=== PATIENT | male | born 1940 | race Caucasian/White ===

== ENCOUNTER 2019-12-24 18:52 | Observation (INO) | payer MEDICARE, BC, OTHER ==
[2019-12-24] MEDS ORDERED: DOPamine 400 MG/D5W 250 ML 250 ML ONE (19:26)
[2019-12-24 19:42] LABS: #Eosinphils 0.1 thou/uL (0.0-0.7); #Lymphocytes 1.7 thou/uL (1.20-3.40); #Monocytes 0.8 thou/uL (0.11-0.59); #Neutrophils 5.5 thou/uL (1.40-6.50); %Basophils 0.5 % (0.0-1.0); %Eosinophils 0.9 % (0.0-10.0); %Lymphocytes 21.1 % (21.0-51.0); %Monocytes 9.6 % (0.0-10.0); %Neutrophils 67.9 % (42.0-75.0); Hemoglobin 14.8 g/dL (14.0-18.0); Mean Corpuscular HGB CONC 34.6 g/dL (32.0-36.0); Mean Corpuscular Volume 95.4 fL (78.0-98.0); Mean Platelet Volume 8.3 fL (7.4-10.4); Platelet Count 200 thou/uL (130-400); RBC Distribution Width 13.5 % (11.5-14.5); White Blood Cell (WBC) Count 8.1 thou/uL (4.8-10.8)
[2019-12-24 19:43] LABS: Albumin 4.1 g/dL (3.4-4.8)
[2019-12-24 19:44] LABS: Calcium 9.1 mg/dL (7.8-10.44); Chloride 103 mmol/L (98-107); Potassium 4.5 mmol/L (3.5-5.1); Sodium 136 mmol/L (136-145)
[2019-12-24 19:45] LABS: Glucose 103 mg/dL (83-110)
[2019-12-24 19:46] LABS: Globulin 2.6 g/dL (2.4-3.5); Protein, Total 6.7 g/dL (5.8-8.1)
[2019-12-24 19:47] LABS: Anion Gap 15 mmol/L (10-20); Bilirubin, Total 0.9 mg/dL (0.2-1.2); Carbon Dioxide 23 mmol/L (23-31)
[2019-12-24 19:48] LABS: Alkaline Phosphatase 47 U/L (40-110)
[2019-12-24 19:49] LABS: BUN (Urea Nitrogen) 27 mg/dL (8.4-25.7); Calc. Creatinine Clearance 0 mL/min (70-130); Estimated GFR-MDRD 36
[2019-12-24 19:50] LABS: AST (SGOT) 20 U/L (5-34)
[2019-12-24 19:51] LABS: ALT (SGPT) 25 U/L (8-55); Magnesium 1.4 mg/dL (1.6-2.6)
[2019-12-24] MEDS ORDERED: Atropine Sulfate 1 mg/10 ml Syringe ONE ×5 (19:58→23:24)
--- NOTE | 2019-12-24 20:07 | RAD ---
Portable frontal chest radiograph: 12/24/2019 COMPARISON: 12/16/2014 HISTORY: Chest pain FINDINGS: A radiopaque device overlies the midline upper mediastinum. Midline sternotomy wires are pr esent. No pneumothorax or pleural fluid. No focal consolidation or alveolar edema. IMPRESSION: No acute findings.
[2019-12-24] MEDS ORDERED: Magnesium 2 GM/50 ML BAG (IN WATER) ONE (20:26)
[2019-12-24] MEDS ORDERED: Ondansetron PF 4 MG/2 ML Vial ONE (21:30)
[2019-12-24] MEDS ORDERED: Ondansetron PF 4 MG/2 ML Vial IVP PRN (21:37)
[2019-12-24] MEDS ORDERED: Dextrose 5% in Water 1,000 ML IV PRN (21:48)
[2019-12-24] MEDS ORDERED: HumaLOG 300 UNITS/3 ML VIAL SC PRN (21:48)
[2019-12-24] MEDS ORDERED: Dextrose 50% Abboject 50 ML SYRINGE SLOW IVP PRN (21:48)
[2019-12-24] MEDS ORDERED: Magnesium Sulfate 1 GM/2 ML VIAL IM SCH (22:00)
[2019-12-24] MEDS ORDERED: Mag-Al 1200 mg/1200 mg/30 ML UDCUP ONE (22:12)
[2019-12-24] MEDS ORDERED: Sodium Chloride 0.9% (PF) 10 ML VIAL FS PRN (22:12)
--- NOTE | 2019-12-24 22:37 | CON ---
DATE OF CONSULTATION: HISTORY OF PRESENT ILLNESS: The patient is a 79-year-old gentleman with a history of coronary artery disease, who presents after feeling weak and nearly loosing consciousness. The patient states he has previously undergone coronary bypass surgery 2002. He also reports that he has previously underwent a repeat catheterization in 2014. He was found to have normal left ventricular systolic function. The left internal mammary artery was an atretic vessel. The saphenous vein graft to the ramus, OM, and right coronary artery were patent. The patient has continued on medical therapy. He was in his usual state of health until a few days ago. He felt very weak and lightheaded. He nearly lost consciousness. The patient went to the office today and had a monitor placed and was noted to have a long pause. The patient states he felt weak today, but did not lose consciousness. PAST MEDICAL HISTORY: 1. Coronary artery disease. 2. Hypertension. 3. Dyslipidemia. 4. Chronic renal insufficiency. PAST SURGICAL HISTORY: Coronary artery bypass surgery. ALLERGIES: DEMEROL. MEDICATIONS: 1. Metformin 1000 b.i.d. 2. Lipitor 10 at bedtime. 3. Plavix 75 daily. 4. Losartan 50 daily. 5. Metoprolol 25 b.i.d. 6. Protonix 40 daily. 7. Amlodipine 10 daily. PHYSICAL EXAMINATION: GENERAL: This is a well-developed gentleman, in no acute distress. VITAL SIGNS: Blood pressure 140/70. NECK: No jugular venous distention. LUNGS: Clear to auscultation. HEART: Regular rate and rhythm. Normal S1 and S2. No murmurs. ABDOMEN: Nondistended. EXTREMITIES: Show no edema. VASCULAR: Radial pulses are 2+. LABORATORY DATA: White blood cell count 8.1, hemoglobin 14.8, hematocrit 42.9, and platelets are 209. Sodium was 136, potassium 4.5, chloride 103, bicarb 27, and creatinine was 1.8. EKG revealed normal sinus rhythm, nonspecific T-wave abnormality. Telemetry monitoring with a nonspecific T-wave abnormality. IMPRESSION: 1. Third-degree heart block. 2. Coronary artery disease. 3. History of coronary artery bypass surgery. 4. Hypertension. 5. Dyslipidemia. This gentleman presents with near-syncope. He is found to have marked bradycardia on his event monitor. The patient has been started on dopamine. He will be transferred to the ICU. Beta-luisa therapy will be withheld. He most likely will need placement of electronic pacemaker. TIME SPENT: Critical care time is 60 minutes. Job ID: [id number] MTDD
--- NOTE | 2019-12-24 22:51 | HP ---
REASON FOR ADMISSION: Twelve-second pause on the heart monitor. HISTORY OF PRESENT ILLNESS: This is a 79-year-old male patient who previously has been having episodes of near syncope, where he feels that he is going to faint, but does not lose consciousness. He is able to get down on the ground and stabilize himself without fainting or falling. Patient denies chest pain. No shortness of breath during his episodes. In today's episode of 12-second pause, he was asymptomatic although he felt warm, but he never felt dizzy. He continued on his day as usual and he did do some work in the yard as well. PAST MEDICAL HISTORY: 1. Coronary artery disease status post CABG in 2002. 2. Chronic kidney disease, stage 3. 3. Diabetes type 2. 4. High blood pressure. 5. High cholesterol. ALLERGIES: TO DEMEROL. SOCIAL HISTORY: He does not smoke. Drinks alcohol socially. FAMILY HISTORY: Negative for premature coronary artery disease. REVIEW OF SYSTEMS: All systems reviewed, except for the above mentioned found to be negative. PHYSICAL EXAMINATION: GENERAL: He is awake, alert, oriented. Does not appear in distress. VITAL SIGNS: His blood pressure is 117/71, heart rate of 49, temperature is 99 degrees. HEENT: Head is nontraumatic, normocephalic. Pupils are equal and reactive. Extraocular movements are intact. Nonicteric sclerae. Well injected conjunctivae. Oral mucosa normal. Nasal mucosa normal. NECK: Supple. No adenopathy. No murmur. Thyroid in not palpable. Trachea is midline. No supraclavicular adenopathy. HEART: S1, S2 regular. Faint systolic murmur is heard. No displacement of PMI. LUNGS: Clear to auscultation bilaterally. No wheezes, rhonchi, or crackles. Bowel sounds are positive. ABDOMEN: Nontender abdomen. No hepatosplenomegaly. EXTREMITIES: No lower extremity edema. No cyanosis. NEUROLOGIC: Cranial nerves 2 through 12 within normal limits. Normal motor function. Normal sensory function. Normal reflexes. LABORATORY DATA: Blood work shows a WBC of 8.1, hemoglobin 14.8, platelets of 200. Sodium 136, potassium 4.5, BUN 27. Creatinine 1.81, previous creatinine 1.64. Magnesium 1.4. Chest x-rays shows no acute findings. EKG per my read shows sinus bradycardia. No ST-segment or T-wave changes. ASSESSMENT AND PLAN: This is a 79-year-old male patient who has been having episodes of near syncope. Today, Cardiology put him on a Holter monitor and he did have an episode where he had a pause for 12 seconds. He was brought into the hospital for further management and ultimately an emergent pacemaker placement. Cardiac: The patient will be admitted to the intensive care unit. He is currently on a dopamine drip to keep his heart rate above 60 and we will continue cycling his cardiac enzymes. Cardiology already saw him. We will keep him n.p.o. after midnight for pacemaker in the morning. Endocrinology: He is diabetic. He will be on insulin sliding scale. Renal system, electrolytes: The patient has chronic kidney disease. He is around his baseline. We will repeat his labs in the morning. We will correct his magnesium. For DVT prophylaxis, he will be on SCDs. Awaiting his med rec to be done so I could reconcile his medication. He is a full code. Job ID: [id number]
[2019-12-24] MEDS ORDERED: Pantoprazole 40 MG VIAL IVP SCH (23:00)
[2019-12-24 23:27] LABS: Troponin I Less than 0.010 ng/mL (< 0.028)
[2019-12-24 23:39] VITALS: BMI 30.2
[2019-12-25] MEDS ORDERED: DOPamine 400 MG/D5W 250 ML 250 ML IVPB SCH (02:00)
[2019-12-25 02:26] LABS: Troponin I 0.033 ng/mL (< 0.028)
[2019-12-25] MEDS ORDERED: Pantoprazole 40 MG VIAL IVP SCH ×2 (09:00)
[2019-12-25] MEDS ORDERED: Heparin 5,000 UNITS/ML VIAL SC SCH (09:00)
[2019-12-25] MEDS ORDERED: Iopamidol 370 76% 50 ML VIAL FS ONE (10:05)
[2019-12-25 10:10] LABS: #Eosinphils 0.1 thou/uL (0.0-0.7); #Lymphocytes 1.2 thou/uL (1.20-3.40); #Monocytes 1.4 thou/uL (0.11-0.59); #Neutrophils 8.4 thou/uL (1.40-6.50); %Basophils 0.2 % (0.0-1.0); %Eosinophils 0.7 % (0.0-10.0); %Lymphocytes 10.4 % (21.0-51.0); %Monocytes 12.8 % (0.0-10.0); %Neutrophils 75.9 % (42.0-75.0); Hemoglobin 13.6 g/dL (14.0-18.0); Mean Corpuscular HGB CONC 34.4 g/dL (32.0-36.0); Mean Corpuscular Hemoglobin 32.6 pg (27.0-31.0); Mean Corpuscular Volume 94.8 fL (78.0-98.0); Mean Platelet Volume 8.1 fL (7.4-10.4); Platelet Count 221 thou/uL (130-400); RBC Distribution Width 13.4 % (11.5-14.5); Red Blood Cell (RBC) Count 4.19 mill/uL (4.70-6.10); White Blood Cell (WBC) Count 11.1 thou/uL (4.8-10.8)
[2019-12-25 10:28] LABS: Anion Gap 15 mmol/L (10-20); BUN (Urea Nitrogen) 26 mg/dL (8.4-25.7); Calc. Creatinine Clearance 47 mL/min (70-130); Calcium 9.1 mg/dL (7.8-10.44); Carbon Dioxide 23 mmol/L (23-31); Chloride 103 mmol/L (98-107); Estimated GFR-MDRD 40; Glucose 180 mg/dL (83-110); Potassium 4.4 mmol/L (3.5-5.1); Sodium 137 mmol/L (136-145)
--- NOTE | 2019-12-25 11:17 | EKG ---
Test Reason : STAT Blood Pressure : / mmHG Vent. Rate : 052 BPM Atrial Rate : 052 BPM P-R Int : 152 ms QRS Dur : 082 ms QT Int : 454 ms P-R-T Axes : 031 031 029 degrees QTc Int : 422 ms Sinus bradycardia Otherwise normal ECG No previous ECGs available Confirmed by JESSY LOYD M.D. ([id number]) on 12/25/2019 11:16:54 AM Referred By: Confirmed By:JESSY LOYD M.D.
[2019-12-25] MEDS ORDERED: CEFAZOLIN 1 GM VIAL ONE (11:37)
[2019-12-25] MEDS ORDERED: Gentamicin 80 MG/2 ML VIAL ONE (11:37)
[2019-12-25] MEDS ORDERED: Lidocaine 1% (PF) 30 ML VIAL ONE (11:50)
[2019-12-25] MEDS ORDERED: Midazolam HCl 2 mg/2 ml Vial ONE (12:26)
[2019-12-25 12:37] LABS: SARS-CoV-2 MS2 Positive; SARS-CoV-2 N Gene Negative; SARS-CoV-2 S Gene Negative; SARS-CoV-2 by NAA Not Detected (NotDetected); SARS-CoV-2 orf1ab Negative
--- NOTE | 2019-12-25 12:37 | CON ---
DATE OF CONSULTATION: HISTORY OF PRESENT ILLNESS: Samm Goff is a 79-year-old gentleman, who came to the hospital after dizziness. He has had a previous CABG in 2002. He was found to have events, monitoring by a local sprinkler irrigation equipment mechanic. He now is admitted to the hospital in the ICU for possible pacemaker insertion. He is a nonsmoker. Denies any shortness of breath, chest pain, chills, or sweats. PAST MEDICAL HISTORY: Pertinent for sleep apnea, has been for 5 years; hypertension; hyperlipidemia; renal disease. PAST SURGICAL HISTORY: Stent in 2010, bypass surgery in 2002. SOCIAL HISTORY: Alcohol, none. Tobacco, none. HOME MEDICATIONS: Include: 1. Metformin 1000 twice a day. 2. CQ 200. 3. Ranitidine 150. 4. Protonix 40. 5. Metoprolol 25. 6. Magnesium. 7. Cozaar 50. 8. Claritin. 9. Plavix 75. ALLERGIES: DEMEROL. SOCIAL AND FAMILY HISTORY: Unremarkable. REVIEW OF SYSTEMS: 10-point negative. PHYSICAL EXAMINATION: GENERAL: He is in no distress. VITAL SIGNS: Pulse 51, blood pressure 116/46, respiratory rate 18, sats 99%. CHEST: No wheezing. No crackles. CARDIAC: Normal S1, S2. No gallop. ABDOMEN: No masses. LABORATORY AND DIAGNOSTIC DATA: X-ray is clear. Creatinine 1.8. ASSESSMENT: Symptomatic bradycardia, coronary artery disease, hypertension, and sleep apnea. PLAN: Await input from Cardiology. Pulmonary/Critical Care will follow while in the ICU. He can clearly continue CPAP. He has a mild case of sleep apnea, on 10 cm nasal CPAP. Consultation note, 70 minutes, 50% direct patient care. Job ID: [id number]
[2019-12-25] MEDS ORDERED: Acetaminophen/Codeine 30-300mg Tablet PO PRN (13:41)
[2019-12-25 14:05] VITALS: BP 120/79
--- NOTE | 2019-12-25 14:18 | RAD ---
EXAM: Single view of the chest HISTORY: Status post cardiac pacemaker placement COMPARISON: 12/24/2019 FINDINGS: Single view of the chest shows a normal sized cardiomediastinal silhouette. The patient is status post CABG. There is a left subclavian pacemaker with its leads in the right atrium and ventricle. No pneumothorax is seen. There is no evidence of consolidation, mass, or pleural effusion . Degenerative changes are seen in the spine. IMPRESSION: Status post pacemaker placement without evidence of complication.
[2019-12-25 16:18] VITALS: TEMP 98.2
[2019-12-25] MEDS ORDERED: metFORMIN 500 MG TAB PO SCH (17:00)
[2019-12-25] MEDS ORDERED: Metoprolol Tartrate 25 MG TAB PO SCH (21:00)
[2019-12-25] MEDS ORDERED: Losartan 25 MG TAB PO SCH (21:00)
[2019-12-25] MEDS ORDERED: Atorvastatin Calcium 10 MG TAB PO SCH (21:00)
--- NOTE | 2019-12-25 21:29 | DIS ---
DATE OF ADMISSION: 12/24/2019 DATE OF DISCHARGE: 12/25/2019 DIAGNOSIS: # third degree heart block # symptomatic bradycardia. HOSPITAL COURSE: Mr. Goff is a 79-year-old male gentleman with past medical of coronary artery disease, status post CABG in 2002, chronic kidney disease stage 3, type 2 diabetes, hypertension, and hyperlipidemia. The patient presented to the emergency department with concerns of dizziness and near syncope. The patient is followed in cardiology clinic and was undergoing evaluation with Holter monitor. Upon review of the Holter monitor, there was a 12-second pause that was noted. Patient was contacted by the Cardiology Team to present to the emergency department for further management and admission to ICU. During his hospitalization, he was started on a dopamine drip to maintain his heart rate above 60. On 12/25/2019, he was taken to OR for placement of pacemaker and tolerated procedure well. The patient was monitored after placement of the pacemaker without further episodes He was stable to discharge. PHYSICAL EXAMINATION: GENERAL: Patient was resting comfortably in bed. CARDIAC: Regular rate and rhythm. Surgical incision over left chest, well approximated, no drainage present LUNGS: Clear to auscultation bilaterally. ABDOMEN: Soft, nontender, and nondistended. NEUROLOGIC: He has no peripheral edema. DISCHARGE INSTRUCTIONS: Activities as tolerated. DIET: Heart healthy. Low-sodium diet. No new medications were started during the hospitalization. The patient is to follow up with his PCP and Cardiology as scheduled. The patient was stable for discharge and discharged home. Return precautions were given. Time spent on patient's discharge was greater than 30 minutes. Job ID: [id number] MTDD
[2019-12-26] MEDS ORDERED: Amlodipine 5 MG TAB PO SCH (09:00)
--- NOTE | 2019-12-26 11:01 | CCLSPC ---
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 He was advised to undergo dual-chamber pacemaker insertion. He was taken to cardiac flower shop laborer/designer where he underwent the procedure today without difficulties or complications. He was implanted with a dual-chamber pacemaker from [employer], an Kimberli XT MRI compatible device with two screw-in leads, one in the atrium and one in the ventricle. There were no complications or difficulties encountered. He was given 1 mg of IV versed for conscious sedation and throughout the procedure was monitored by an independent observer present for heart rate, blood pressure, and O2 saturation and remained stable throughout the procedure. Total sedation time was approximately 44 minutes. Pacemaker set with the upper rate of 120, the lower rate was set at 60. Job ID: [id number]
[2019-12-27] MEDS ORDERED: Clopidogrel Bisulfate 75 MG TAB PO SCH (09:00)
--- NOTE | 2019-12-30 15:09 | EKG ---
Test Reason : POST PACEMAKER INSER Blood Pressure : / mmHG Vent. Rate : 073 BPM Atrial Rate : 073 BPM P-R Int : 168 ms QRS Dur : 082 ms QT Int : 390 ms P-R-T Axes : 067 040 116 degrees QTc Int : 429 ms Normal sinus rhythm T wave abnormality, consider lateral ischemia Abnormal ECG When compared with ECG of 24-DEC-2019 23:57, T wave inversion now evident in Lateral leads Confirmed by JESSY LOYD M.D. ([id number]) on 12/30/2019 3:09:08 PM Referred By: CHRISTIAN Confirmed By:JESSY LOYD M.D.
== END 2019-12-25 16:53 | disposition home or self-care (01) ==
LOC: ERS 18:52 → INTOOBSV 21:16 → CCU 21:16
PROVIDERS: ADMIT Internal Medicine; ATTEND Internal Medicine
DX: I44.2 Atrioventricular block, complete (principal); R00.1 Bradycardia, unspecified; I25.10 Atherosclerotic heart disease of native coronary artery without angina pectoris; N18.3 Chronic kidney disease, stage 3 (moderate); E11.22 Type 2 diabetes mellitus with diabetic chronic kidney disease; I12.9 Hypertensive chronic kidney disease with stage 1 through stage 4 chronic kidney disease, or unspecified chronic kidney disease; E78.5 Hyperlipidemia, unspecified; Z20.828 Contact with and (suspected) exposure to other viral communicable diseases; E78.00 Pure hypercholesterolemia, unspecified; G47.30 Sleep apnea, unspecified; Z95.1 Presence of aortocoronary bypass graft; Z88.8 Allergy status to other drugs, medicaments and biological substances; Z95.5 Presence of coronary angioplasty implant and graft; Z79.899 Other long term (current) drug therapy; Z79.84 Long term (current) use of oral hypoglycemic drugs; Z79.02 Long term (current) use of antithrombotics/antiplatelets
CPT/HCPCS: 33208; 36005; 71045 ×2; 75820; 80048; 82962; 83735 ×2; 84484 ×3; 85025; 93005 ×2; 93306; 94660; 96365; 96366; 96368; 96374; 96375; 96376; 99291; 99292; C1785; C1898 ×2; U0003; 36415; 36416; 80053; 84443; 87635; 93010; 99152; 99153; C9113; G0378; J0461; J0690; J1265; J1580; J2001; J2250; J2405; J3475; Q9967

== ENCOUNTER 2021-05-18 13:32 | Outpatient (CLI) | payer MEDICARE, BC | END 2021-05-18 13:33 | disposition home or self-care (01) | LOC: RAD-FRANK 13:32 | PROVIDERS: ATTEND Nurse Practitioner Family | DX: R05.9 Cough, unspecified (principal) | CPT/HCPCS: 71046 ==

== ENCOUNTER 2021-09-08 09:55 | Day surgery (SDC) | payer MEDICARE, BC ==
[2021-09-07 13:32] VITALS: BMI 29.6
[2021-09-08] MEDS ORDERED: PROPOFOL 200 MG/20 ML VIAL ONE (12:29)
== END 2021-09-08 13:39 | disposition home or self-care (01) ==
LOC: SDC 09:55
PROVIDERS: ATTEND Internal Medicine Cardiovascular Disease
PROC: 5A2204Z Restoration of Cardiac Rhythm, Single (ICD-10-PCS; principal; 2021-09-08)
DX: I48.91 Unspecified atrial fibrillation (principal); Z79.01 Long term (current) use of anticoagulants; Z79.02 Long term (current) use of antithrombotics/antiplatelets; Z79.899 Other long term (current) drug therapy; Z88.5 Allergy status to narcotic agent; Z95.0 Presence of cardiac pacemaker; Z95.1 Presence of aortocoronary bypass graft; Z95.5 Presence of coronary angioplasty implant and graft
CPT/HCPCS: 92960; 93005; 93010; J2704